=== PATIENT | female | born 1995 | race Caucasian/White ===

== ENCOUNTER 2022-12-17 07:30 | Outpatient (RCR) | payer BC, SELFPAY ==
--- NOTE | 2022-11-24 08:31 | HP.PTEVAL_ITS ---
Patient's Visit Information Visit Information Visit Information: KAYLYN TARIQ is a 26 year old F referred to Physical Therapy by LAINEY AGUILAR with a diagnosis of Modified Bronstrom Procedure Right Ankle. Date of Evaluation: 11/24/22 Physical Therapist: Chiquita Berger DPT Visit Plan Frequency: 2-3x /Week Duration: 4 Weeks Plan: Avoid Inversion- proprioception, LE strength/stabilization- closed chain HEP Given IE: ankle ROM (DF/PF/Inver/Ever GENTLE) seated HR/TR, weight shift REVIEW Script for instructions Subjective Subjective: Right ankle surgery September 23, 2022 at [facility] [place]- she did an excision of a fibula and a modified brostrom. She had a Brostrom procedure by Dr. Houston on the same ankle in high school fell on Apr 05 and then ended up with surgery again. She has been in a boot and crutches and in the last 2 weeks she has been WBAT. The order is to progress out of the boot and into a brace- she does have the brace and then from the brace to just a shoe. She wears the CAM walker when she is up and moving but not sleeping. She does have more pain at the end of the day. She has a lot of muscular pain that radiates up the lateral aspect of the calf. Worst: 3/10 Agg: being up on it all day or catch it the wrong day. Eases: ice Best: 0/10. Describes the pain as dull and achy. Does have N/T in the toes that comes and goes. Last time she was the MD was November 08- she has not had recent x-rays on the right. She had a fall on her crutches so they x-rayed her left side. 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 Sleep: not disturbed. She is normally pretty active. She really wants to run a half marathon at some point. She was a runner prior to all of this happening. PMHx: none Meds: topamax, neurtec, zoloft Objective Objective: Posture: FH, RS- can correct but does not maintain Gait: antalgic- CAM walker-no AD Observation: good healing of incisions no s/s of infection Balance: weight shift only HR/TR: seated able without pain Girth: Figure 8: 50 cm Mall: 23.5 cm Meds: 21. 5 cm ROM: DF: 5 degrees, PF: 60 degrees, Ever: 20 degrees, Inver: 10 degrees- no overpressure Strength: Isometric Inv/Ever: 4/5, DF: 4+/5, PF:4+/5 Flex: Gastroc: severe, Solues: mild Palpation: along the posterior aspect of the fibula Balance/Special Test Scores Lower Extremity Functional Score: 40 Goals Goal 1:: Patient will be I with HEP and progression Goal Time Frame: 4-6 Weeks Goal 2:: Patient will ambulate >300 feet with a normalized gait pattern Goal Time Frame: 4-6 Weeks Goal 3:: Patient will SLS without LOB for 30 sec Goal Time Frame: 4-6 Weeks Goal 4:: Patient will report 80% improvement Goal Time Frame: 4-6 Weeks Rehabilitation Potential Physical Therapy Diagnosis: Patient presents with hypomobility- she has decreased LE ROM, strength, proprioception, flex and muscular endurance s/p right ankle procedure leading to abnormal gait and decreased ability to perform ADL's. Rehabilitation Potential: Good Anticipated Interventions Patient/Client Instruction: Educate patient on: Benefits of Fitness Program Therapeutic Exercise to Include: Strength training, Endurance training, Balance training, Coordination, Agility training, Body mechanics, Postural training, Flexibilty training, Gait and locomotor training, Neuromotor development, Passive ROM, Active ROM, Dynamic Lumbar Stabilization and Scapular Strength/Stabilization For the Purpose of:: To improve muscle performance and motor function TENS: Yes Cryotherapy (ice pack, ice massage): Yes Thermo therapy (hot pack): Yes Text: Thank you for the opportunity to evaluate your patient. For Medicare and Medicare HMO plans, please review the plan of care and approve it. It will need to be FAXED BACK to us at [phone] for Medicare purposes. For Medicare only, by signing this I certify the plan of care. Please let me know if there are questions or concerns regarding this plan of care. Physician Signature: Date:
--- NOTE | 2022-12-17 08:17 | HP.PTDCSUM_ITS ---
Discharge Summary D/C summary: It has been my pleasure to treat KAYLYN TARIQ referred by LAINEY AGUILAR, with the diagnosis of R Ankle Distal Fibular Bone Excision Possible Revision Bhavna Copeland with Ca for a total of 5 visit(s). Discharge Date: Please see the following information for a summary of their discharge status. Subjective Subjective: Patient reports that she is a lot more confident with her ankle but having pain with peroneal tendonitis- pain is located in the insertion and along the bellies- she plans to continue PT when she gets [facility] and NSAIDs PRN. Overall Improvement % Improvement: 50 Objective Objective/Function: Posture: FH, RS- can correct but does not maintain Gait: no deviation noted Observation: good healing of incisions no s/s of infection Balance: 15 sec increased muscle activation HR/TR: able with UE A Girth: Figure 8: 49.5 cm Mall: 24 cm ROM: DF: 10 degrees, PF: 60 degrees, Ever: 20 degrees, Inver: 10 degrees- no overpressure Strength: Isometric Inv/Ever: 4+/5, DF: 4+/5, PF:4+/5 Flex: Gastroc: mod, Solues: mild Palpation: along the the mortice of the ankle Goals Goal 1:: Patient will be I with HEP and progression Goal Progress: Goal Met Goal 2:: Patient will ambulate >300 feet with a normalized gait pattern Goal Progress: Progressing Goal 3:: Patient will SLS without LOB for 30 sec Goal Progress: Progressing Goal 4:: Patient will report 80% improvement Goal Progress: Progressing Plan Plan: Discharge to [facility] as pt is [facility]- follow up with new PT once established- encouraged her to call if questions or concerns D/C Information d/c sentence: If there are questions or concerns regarding this patient's physical therapy, please feel free to call me at [phone]. Thank you for the referral of this patient. Sincerely, Chiquita Berger, DPT Balance/Gait/Functional tests Balance/Special Test Scores Lower Extremity Functional Score: 52
== END 2022-12-17 13:42 | disposition home or self-care (01) ==
LOC: PT 07:30
PROVIDERS: PCP Internal Medicine
DX: S82.831D Other fracture of upper and lower end of right fibula, subsequent encounter for closed fracture with routine healing (principal); S93.401D Sprain of unspecified ligament of right ankle, subsequent encounter
CPT/HCPCS: 97110; 97162; 97164